=== PATIENT | male | born 1965 | race Caucasian/White ===

== ENCOUNTER 2023-01-07 09:36 | Outpatient (CLI) | payer OTHER, SELFPAY ==
--- NOTE | ~2023-01-07 | CT_ITS ---
Non-contrast CT scan of the Abdomen and Pelvis Clinical indication: Flank pain, hematuria Technique: 2.5 mm axial scans were obtained through the abdomen and pelvis without intravenous or or al contrast. Dose reduction technique was used on this scan by utilizing automated exposure control a nd iterative reconstruction technique. The dose-length product (DLP) was 176.65 mGy-cm. Findings: Images through the lung bases reveal no abnormalities. There are numerous bilateral nonobstructing renal stones, as well as small bilateral renal cysts. Lar gest stone probably measures 6 mm, at the left lower pole. No definite ureteral stone or hydronephros is identified. The liver, spleen, pancreas, gallbladder, and adrenals appear normal. There is no aortic aneurysm. There is no evidence of bowel obstruction. Probable distal colectomy with left lower quadrant ostomy present. Images through the pelvis are degraded by streak artifact from right hip arthroplasty. There is no ev idence of ascites or lymphadenopathy. Urinary bladder grossly unremarkable. No pelvic mass evident. Impression: Multiple bilateral nonobstructing renal stones. No hydronephrosis. No definite ureteral stone, though the distal ureters are obscured due to streak artifact from right hip arthroplasty. Reviewed, dictated and finalized at location . Impression: Multiple bilateral nonobstructing renal stones. No hydronephrosis. No definite ureteral stone, though the distal ureters are obscured due to streak artifact f rom right hip arthroplasty.
== END 2023-01-07 09:37 | disposition home or self-care (01) ==
LOC: CHSIMG 09:39
PROVIDERS: PCP Family Medicine
DX: R31.9 Hematuria, unspecified (principal); N20.0 Calculus of kidney
CPT/HCPCS: 74176

== ENCOUNTER 2023-02-26 09:47 | Outpatient (CLI) | payer OTHER, SELFPAY ==
--- NOTE | ~2023-02-26 | CT_ITS ---
Non-contrast CT scan of the Abdomen and Pelvis Clinical indication: Right flank pain, urolithiasis, postoperative pain Technique: 2.5 mm axial scans were obtained through the abdomen and pelvis without intravenous or or al contrast. Dose reduction technique was used on this scan by utilizing automated exposure control a nd iterative reconstruction technique. The dose-length product (DLP) was 170.39 mGy-cm. COMPARISON: 01/07/2023 Findings: Images through the lung bases reveal no abnormalities. There are multiple small nonobstructing bilateral renal stones. Bilateral renal cysts are present. Pr obable medullary nephrocalcinosis bilaterally. No ureteral stone or hydronephrosis evident. The liver, spleen, pancreas, gallbladder, and adrenals appear normal. There is no aortic aneurysm. There is no evidence of bowel obstruction. Left lower quadrant ostomy present. Images through the pelvis are degraded by streak artifact from right hip arthroplasty. There is no ev idence of ascites or lymphadenopathy. Urinary bladder unremarkable. 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 No definite u reteral stone or hydronephrosis. Left lower quadrant ostomy. No bowel obstruction evident. Reviewed, dictated and finalized at [facility]. 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 No definite ureteral stone or hydronephrosis. Left lower quadrant ostomy. No bowel obstruction evident.
== END 2023-02-26 09:48 | disposition home or self-care (01) ==
LOC: CHSIMG 09:48
PROVIDERS: PCP Family Medicine
DX: G89.18 Other acute postprocedural pain (principal); N20.9 Urinary calculus, unspecified; N20.0 Calculus of kidney; Z93.3 Colostomy status
CPT/HCPCS: 74176